=== PATIENT | female | born 1940 | race Caucasian/White ===

== ENCOUNTER 2016-12-23 17:54 | Emergency (ER) | payer MEDICARE ==
[~2016-12-23] VITALS: Ht 162.6 cm; Wt 97.0 kg
[~2016-12-23 17:54] MED LIST: ALPR-475 PO; CALC600T4 PO; CHOL20003 PO; CLON0.1T PO; DABI150C PO; HYDR25TA6 PO; METO25TA91 PO; VALS320T2 PO; ZOLP10TA PO
[2016-12-23] MEDS ORDERED: ALBUTEROL/IPRATROPIUM 2.5MG/0.5MG, 3 ML NPPB SCH (18:00)
[2016-12-23] MEDS ORDERED: SODIUM CHLORIDE FLUSH 10ML SYR IVF ONE (18:00)
[2016-12-23] MEDS ORDERED: ALBUTEROL/IPRATROPIUM 2.5MG/0.5MG, 3 ML ONE (18:03)
[2016-12-23 18:42] LABS: HEMOGLOBIN 13.7 g/dL (11.7-16.4)
[2016-12-23 19:00] LABS: BLOOD UREA NITROGEN 12 mg/dL (7-18)
[2016-12-23] MEDS ORDERED: CLON-275 PO (19:03)
[2016-12-23] MEDS ORDERED: LOSA100T6 PO (19:03)
[2016-12-23] MEDS ORDERED: LEVO50TA5 PO (19:03)
[2016-12-23] MEDS ORDERED: METO50TA82 PO (19:03)
[2016-12-23] MEDS ORDERED: RIVA20TA PO (19:03)
[2016-12-23] MEDS ORDERED: TRAM50TA2 PO (19:03)
[2016-12-23] MEDS ORDERED: METO-99 PO (19:03)
[2016-12-23] MEDS ORDERED: ALPR0.254 PO (19:03)
[2016-12-23 19:11] LABS: IS PT STATUS REG ER OR PRE ER? YES
[2016-12-23 21:58] VITALS: BP 136/85
== END 2016-12-23 22:00 | disposition home or self-care (01) ==
LOC: ED 20:36
DX: I11.0 Hypertensive heart disease with heart failure (principal); I50.1 Left ventricular failure, unspecified; E03.9 Hypothyroidism, unspecified; Z90.710 Acquired absence of both cervix and uterus; Z88.8 Allergy status to other drugs, medicaments and biological substances
CPT/HCPCS: 36415; 71010; 80048; 82040; 83605; 83880; 84145; 84484; 85025; 85610; 87040; 93005; 94640; 99285; J7512; J7620

== ENCOUNTER 2016-12-24 15:20 | Inpatient (IN) | payer MEDICARE ==
[~2016-12-24] VITALS: Ht 162.6 cm; Wt 87.6 kg
[~2016-12-24 15:20] MED LIST changes: +ALPR0.254 PO; +CLON-275 PO; +LEVO50TA5 PO; +LOSA100T6 PO; +METO-99 PO; +METO50TA82 PO; +RIVA20TA PO; +TRAM50TA2 PO
[2016-12-24] MEDS ORDERED: methylPREDNISolone SOD SUCC 125 MG/2 ML IVP ONE (15:30)
[2016-12-24] MEDS ORDERED: ALBUTEROL/IPRATROPIUM 2.5MG/0.5MG, 3 ML NPPB ONE (15:30)
[2016-12-24] MEDS ORDERED: SODIUM CHLORIDE FLUSH 10ML SYR IVF ONE (15:30)
[2016-12-24] MEDS ORDERED: ALBUTEROL/IPRATROPIUM 2.5MG/0.5MG, 3 ML ONE (15:35)
[2016-12-24] MEDS ORDERED: methylPREDNISolone SOD SUCC 125 MG/2 ML ONE (15:49)
[2016-12-24] MEDS ORDERED: ENALAPRILAT 1.25 MG/ML, 2ML IV ONE (16:00)
[2016-12-24 16:06] LABS: ASPARTATE AMINO TRANSFERASE 34 U/L (15-37); BLOOD UREA NITROGEN 15 mg/dL (7-18); HEMOGLOBIN 13.1 g/dL (11.7-16.4)
[2016-12-24] MEDS ORDERED: ENALAPRILAT 1.25 MG/ML, 2ML ONE (16:16)
[2016-12-24 16:56] LABS: IS PT STATUS REG ER OR PRE ER? YES
[2016-12-24] MEDS ORDERED: POTASSIUM CHLORIDE 20 MEQ TAB.ER.PRT PO ONE (17:00)
[2016-12-24] MEDS ORDERED: POTASSIUM CHLORIDE 20 MEQ TAB.ER.PRT ONE (17:07)
[2016-12-24] MEDS: DOXYCYCLINE 100 MG in DEXTROSE 5% 250 ML IV SCH (17:26)
[2016-12-24] MEDS ORDERED: LABETALOL 5MG/ML, 20ML IV PRN (17:30)
[2016-12-24] MEDS ORDERED: ONDANSETRON ODT 4 MG PO PRN (17:30)
[2016-12-24] MEDS ORDERED: ONDANSETRON 2MG/ML, 2ML IVP PRN (17:30)
[2016-12-24] MEDS ORDERED: POLYETHYLENE GLYCOL 17 GM PACKET PO PRN (17:30)
[2016-12-24] MEDS: FUROSEMIDE 40 MG/4 ML IV ONE ×2 (18:00→21:13)
[2016-12-24 18:22] LABS: IS PT STATUS REG ER OR PRE ER? YES
[2016-12-24 19:13] VITALS: BP 144/71
[2016-12-24] MEDS ORDERED: DOXYCYCLINE 100MG TABLET PO SCH (21:00)
[2016-12-24] MEDS: FAMOTIDINE 20 MG/2 ML IV SCH ×2 (21:00→21:08)
[2016-12-24] MEDS: ZOLPIDEM 10MG TABLET PO SCH (21:00)
[2016-12-24] MEDS: POTASSIUM CHLORIDE 20 MEQ PACKET PO SCH (21:07)
[2016-12-24] MEDS: ENOXAPARIN 40 MG/0.4 ML SQ SCH ×2 (21:08→21:20)
[2016-12-24] MEDS: CEFTRIAXONE PMX 2GM/50ML 50 ML IV SCH (22:41)
[2016-12-25 00:27] LABS: IS PT STATUS REG ER OR PRE ER? NO
[2016-12-25] MEDS ORDERED: IBUPROFEN 200 MG TABLET PO ONE (00:30)
[2016-12-25 01:35] VITALS: BP 143/80
[2016-12-25] MEDS: DOXYCYCLINE 100 MG in DEXTROSE 5% 250 ML IV SCH ×2 (05:23→16:54)
[2016-12-25 05:45] LABS: HEMOGLOBIN 13.4 g/dL (11.7-16.4)
[2016-12-25 05:47] LABS: BLOOD UREA NITROGEN 15 mg/dL (7-18)
[2016-12-25 05:52] LABS: ASPARTATE AMINO TRANSFERASE 29 U/L (15-37)
[2016-12-25 06:42] VITALS: BP 149/91
[2016-12-25] MEDS ORDERED: LORazepam 1MG TABLET PO ONE (08:30)
[2016-12-25] MEDS ORDERED: REGADENOSON 0.4 MG/5 ML SYRINGE ONE (08:46)
[2016-12-25] MEDS ORDERED: METOPROLOL TARTRATE 100 MG TABLET PO SCH (09:00)
[2016-12-25] MEDS ORDERED: HYDROCHLOROTHIAZIDE 25 MG TABLET PO SCH (09:00)
[2016-12-25 09:45] LABS: IS PT STATUS REG ER OR PRE ER? NO
[2016-12-25] MEDS: POTASSIUM CHLORIDE 20 MEQ PACKET PO SCH (11:52)
[2016-12-25] MEDS: LEVOTHYROXINE 50 MCG TABLET PO SCH (11:53)
[2016-12-25] MEDS: CALCIUM CARBONATE 500 MG TAB.CHEW PO SCH (11:53)
[2016-12-25] MEDS: LOSARTAN 50MG TABLET PO SCH (11:54)
[2016-12-25] MEDS: SENNA/DOCUSATE TABLET PO SCH (11:54)
[2016-12-25] MEDS: CHOLECALCIFEROL 1,000 UNIT TABLET PO SCH (11:54)
[2016-12-25] MEDS: FAMOTIDINE 20 MG/2 ML IV SCH (11:57)
[2016-12-25 12:50] VITALS: BP 155/83
[2016-12-25] MEDS ORDERED: METOPROLOL TARTRATE 50 MG TABLET PO SCH (16:30)
[2016-12-25] MEDS: RIVAROXABAN 20 MG TABLET PO SCH (16:52)
[2016-12-25 19:28] VITALS: BP 161/72
[2016-12-25] MEDS: FAMOTIDINE 20 MG TABLET PO SCH (20:13)
[2016-12-25] MEDS: METOPROLOL TARTRATE 50 MG TABLET PO SCH (20:14)
[2016-12-25] MEDS: ZOLPIDEM 10MG TABLET PO SCH (20:14)
[2016-12-25] MEDS: CEFTRIAXONE PMX 2GM/50ML 50 ML IV SCH (22:36)
[2016-12-26] MEDS: GUAIFENESIN/DM 200-20MG, 10ML UDC PO PRN (01:25)
[2016-12-26 02:00] VITALS: BP 144/82
[2016-12-26] MEDS: DOXYCYCLINE 100 MG in DEXTROSE 5% 250 ML IV SCH ×2 (04:52→17:41)
[2016-12-26 05:55] LABS: HEMOGLOBIN 13.7 g/dL (11.7-16.4)
[2016-12-26 06:05] LABS: ASPARTATE AMINO TRANSFERASE 25 U/L (15-37); BLOOD UREA NITROGEN 19 mg/dL (7-18)
[2016-12-26 07:20] VITALS: BP 138/84
[2016-12-26] MEDS: CHOLECALCIFEROL 1,000 UNIT TABLET PO SCH (09:12)
[2016-12-26] MEDS: POTASSIUM CHLORIDE 20 MEQ PACKET PO SCH (09:12)
[2016-12-26] MEDS: CALCIUM CARBONATE 500 MG TAB.CHEW PO SCH (09:12)
[2016-12-26] MEDS: LEVOTHYROXINE 50 MCG TABLET PO SCH (09:13)
[2016-12-26] MEDS: FAMOTIDINE 20 MG TABLET PO SCH ×2 (09:13→19:45)
[2016-12-26] MEDS: METOPROLOL TARTRATE 50 MG TABLET PO SCH ×2 (09:13→19:45)
[2016-12-26] MEDS: LOSARTAN 50MG TABLET PO SCH (09:13)
[2016-12-26] MEDS: SENNA/DOCUSATE TABLET PO SCH (09:14)
[2016-12-26 13:17] VITALS: BP 160/93
[2016-12-26] MEDS: RIVAROXABAN 20 MG TABLET PO SCH (17:41)
[2016-12-26 19:52] VITALS: BP 178/95
[2016-12-26 20:44] VITALS: BP 176/116
[2016-12-26] MEDS: ZOLPIDEM 10MG TABLET PO SCH (21:00)
[2016-12-26] MEDS ORDERED: LABETALOL 20 MG/4 ML IV PRN (21:30)
[2016-12-26] MEDS: CEFTRIAXONE PMX 2GM/50ML 50 ML IV SCH (22:42)
[2016-12-26 22:50] VITALS: BP 144/83
[2016-12-27 03:50] VITALS: BP 163/87
[2016-12-27] MEDS: DOXYCYCLINE 100 MG in DEXTROSE 5% 250 ML IV SCH (05:19)
[2016-12-27 05:20] LABS: HEMOGLOBIN 12.4 g/dL (11.7-16.4)
[2016-12-27 05:31] LABS: BLOOD UREA NITROGEN 17 mg/dL (7-18)
[2016-12-27 06:40] VITALS: BP 171/82
[2016-12-27] MEDS: CALCIUM CARBONATE 500 MG TAB.CHEW PO SCH (08:45)
[2016-12-27] MEDS: SENNA/DOCUSATE TABLET PO SCH (08:45)
[2016-12-27] MEDS: CHOLECALCIFEROL 1,000 UNIT TABLET PO SCH (08:45)
[2016-12-27] MEDS: FAMOTIDINE 20 MG TABLET PO SCH (08:45)
[2016-12-27] MEDS: METOPROLOL TARTRATE 50 MG TABLET PO SCH (08:45)
[2016-12-27] MEDS: LEVOTHYROXINE 50 MCG TABLET PO SCH (08:45)
[2016-12-27] MEDS: LOSARTAN 50MG TABLET PO SCH (08:46)
[2016-12-27] MEDS: GUAIFENESIN/DM 200-20MG, 10ML UDC PO PRN (08:55)
[2016-12-27 12:49] VITALS: BP 162/96
[2016-12-27] MEDS ORDERED: PRED20TA PO (13:52)
[2016-12-27] MEDS ORDERED: DOXY100T PO (13:52)
[2016-12-27] MEDS ORDERED: CEFD300C2 PO (13:52)
[2016-12-27] MEDS ORDERED: ALBU8.5H3 INH (13:53)
[2016-12-27] MEDS ORDERED: GUAI5SYR PO (14:01)
== END 2016-12-27 16:50 | disposition home health service (06) | DRG 291 ==
LOC: ED 15:29 → EDIP 16:35 → 4EST 18:28 → DCLOUNGE 12-27 16:50
PROVIDERS: ADMIT Internal Medicine; ATTEND Internal Medicine
DX: I11.0 Hypertensive heart disease with heart failure (principal); J18.9 Pneumonia, unspecified organism; J96.01 Acute respiratory failure with hypoxia; D68.69 Other thrombophilia; E87.1 Hypo-osmolality and hyponatremia; I50.41 Acute combined systolic (congestive) and diastolic (congestive) heart failure; J40 Bronchitis, not specified as acute or chronic; I48.91 Unspecified atrial fibrillation; E03.9 Hypothyroidism, unspecified; E87.6 Hypokalemia; R73.9 Hyperglycemia, unspecified; M19.90 Unspecified osteoarthritis, unspecified site; I27.2 Other secondary pulmonary hypertension; T50.2X5A Adverse effect of carbonic-anhydrase inhibitors, benzothiadiazides and other diuretics, initial encounter; Z79.899 Other long term (current) drug therapy; Z80.42 Family history of malignant neoplasm of prostate; Z90.49 Acquired absence of other specified parts of digestive tract; Z90.89 Acquired absence of other organs; Z86.73 Personal history of transient ischemic attack (TIA), and cerebral infarction without residual deficits; Z90.710 Acquired absence of both cervix and uterus; Z88.8 Allergy status to other drugs, medicaments and biological substances
CPT/HCPCS: 36415; 71010; 78452; 80048; 80053; 80061; 81003; 82962; 83036; 83605; 83690; 83735; 83880; 84100; 84439; 84443; 84484; 85025; 85610; 87040; 87070; 87205; 93005; 93017; 93306; 94640; 96365; 96375; J0696; J1650; J1940; J2785; J7060; J7620; A9502; C9898; J2930; J7512; S0028

== ENCOUNTER → 2017-06-11 | Outpatient (CLI) | payer MEDICARE ==
[~2017-06-11] MED LIST changes: +ALBU8.5H8 INH; +CEFD300C37 PO; +CHOL2000 PO; -CHOL20003 PO; +DOXY100T PO; +GUAI5SYR PO; +PRED20TA PO
[2017-06-11 12:47] LABS: HEMATOCRIT 35.1 % (34.6-47.8); HEMOGLOBIN 11.5 g/dL (11.7-16.4); WHITE BLOOD COUNT 7.3 x10^3/uL (3.4-10)
[2017-06-11 13:02] LABS: HEP B SURF. AB < 3.1 mIU/mL (0.0-10.0)
[2017-06-11 13:26] LABS: TOTAL IRON BINDING CAPACITY 458 mcg/dL (250-450)
[2017-06-11 13:41] LABS: HEPATITIS A ANTIBODY TOTAL Nonreactive (Nonreactive)
[2017-06-13 12:28] LABS: ANA SCREEN POSITIVE (Negative)
[2017-06-13 14:07] LABS: A/G RATIO 1.5 (0.7-1.7); ALBUMIN 4.2 g/dL (2.9-4.4); ALPHA-1-GLOBULIN 0.2 g/dL (0.0-0.4); BETA GLOBULIN 1.3 g/dL (0.7-1.3); GAMMA GLOBULIN 0.7 g/dL (0.4-1.8)
== END | disposition home or self-care (01) ==
LOC: CFH 10:25
PROVIDERS: ATTEND Internal Medicine
DX: D64.9 Anemia, unspecified (principal); D72.829 Elevated white blood cell count, unspecified; F32.9 Major depressive disorder, single episode, unspecified; F41.9 Anxiety disorder, unspecified; G89.29 Other chronic pain
CPT/HCPCS: 36415; 82607; 82746; 83540; 83550; 84155; 84165; 85027; 85045; 86038; 86039; 86706; 86708; 86803

== ENCOUNTER 2017-10-29 15:44 | Inpatient (IN) | payer MEDICARE ==
[~2017-10-29] VITALS: Ht 162.6 cm; Wt 80.9 kg
[~2017-10-29 15:44] MED LIST changes: -CARV6.252 PO; -CHOL100012 PO; -FERR324T8 PO; -FURO20TA3 PO; -OMEG-14 PO; -OMEG1CAP57 PO; -POTA20TA14 PO; -SERT50TA5 PO; -TRAZ50TA18 PO
[2017-10-29] MEDS ORDERED: SODIUM CHLORIDE 0.9% 1,000ML IVBOLUS ONE ×2 (16:30→17:00)
[2017-10-29] MEDS ORDERED: SODIUM CHLORIDE FLUSH 10ML SYR IVF ONE (16:30)
[2017-10-29 16:34] LABS: ALANINE AMINOTRANSFERASE 18 U/L (12-78); ALBUMIN 2.9 g/dL (3.4-5.0); ANION GAP 8 mmol/L (5-15); CALCIUM 9.2 mg/dL (8.5-10.1); CHLORIDE 98 mmol/L (98-107); CREATININE 0.91 mg/dL (0.55-1.02)
[2017-10-29 16:36] LABS: ALKALINE PHOSPHATASE 100 U/L (45-117); BILIRUBIN,TOTAL 0.6 mg/dL (0.2-1.0); TOTAL PROTEIN 7.3 g/dL (6.4-8.2)
[2017-10-29 16:45] LABS: MD YES; MEAN CORPUSCULAR HEMOGLOBIN 27.2 pg (27.0-34.8); MEAN CORPUSCULAR HGB CONC 31.8 g/dL (32.4-35.8); MEAN CORPUSCULAR VOLUME 85.6 fL (80-100); MEAN PLATELET VOLUME 9.3 fL (7.4-10.4); PLATELET COUNT 451 x10^3/uL (130-400); RED CELL DISTRIBUTION WIDTH 15.5 % (9.6-15.2)
[2017-10-29] MEDS ORDERED: ONDANSETRON 2MG/ML, 2ML IVPush ONE (17:00)
[2017-10-29] MEDS ORDERED: SODIUM CHLORIDE 0.9% 1,000 ML IV SCH (17:00)
[2017-10-29] MEDS ORDERED: PIPERACILLIN/TAZO/PMX 4.5GM 100 ML IV ONE (17:00)
[2017-10-29] MEDS ORDERED: MORPHINE SULFATE 4 MG/ML, 1ML ONE (17:10)
[2017-10-29] MEDS ORDERED: ONDANSETRON 2MG/ML, 2ML ONE (17:10)
[2017-10-29] MEDS: MORPHINE SULFATE 4 MG/ML, 1ML IVPush PRN ×2 (17:18→21:57)
[2017-10-29 17:28] LABS: BAND#(MANUAL) 0.21 x10^3/uL; BANDS%(MANUAL) 2 % (0-7); LYMPH#(MANUAL) 1.56 x10^3/uL (1-3.4); LYMPHS% (MANUAL) 15 % (22-44); MONOS#(MANUAL) 0.42 x10^3/uL (0.3-2.7); MONOS% (MANUAL) 4 % (2-9); MYELOCYTES# (MANUAL) 0.21 x10^3/uL (0-0); MYELOCYTES% (MANUAL) 2 % (0-0); SEG#(MANUAL) 8.01 x10^3/uL (1.8-6.8); SEGS% (MANUAL) 77 % (42-75)
[2017-10-29 17:31] LABS: <PLATELET ESTIMATE> INCREASED; <PLT MORPHOLOGY> NORMAL PLT MORPH; ANISOCYTOSIS 1+
[2017-10-29 17:52] LABS: MICROSCOPIC NOT IND
[2017-10-29 17:53] LABS: CULTURE INDICATED? NO
[2017-10-29] MEDS ORDERED: POTA20TA14 PO (17:56)
[2017-10-29] MEDS ORDERED: OMEG-14 PO (17:56)
[2017-10-29] MEDS ORDERED: OMEG1CAP57 PO (17:56)
[2017-10-29] MEDS ORDERED: CHOL100012 PO (17:56)
[2017-10-29] MEDS ORDERED: TRAZ50TA18 PO (17:56)
[2017-10-29] MEDS ORDERED: CARV6.252 PO (17:56)
[2017-10-29] MEDS ORDERED: RIVA20TA PO (17:56)
[2017-10-29] MEDS ORDERED: FURO20TA3 PO (17:56)
[2017-10-29] MEDS ORDERED: LOSA100T6 PO (17:56)
[2017-10-29] MEDS ORDERED: CLON0.1T PO (17:56)
[2017-10-29] MEDS ORDERED: SERT50TA5 PO (17:57)
[2017-10-29] MEDS ORDERED: FERR324T8 PO (17:57)
[2017-10-29] MEDS ORDERED: ONDANSETRON 2MG/ML, 2ML IVPush PRN (18:30)
[2017-10-29] MEDS: PIPERACILLIN/TAZO/PMX 3.375GM 50 ML IV SCH ×2 (18:56→23:50)
[2017-10-29] MEDS ORDERED: HEPARIN 5,000 UNITS/ML, 1ML ONE (20:44)
[2017-10-29] MEDS ORDERED: HEPARIN 25,000 UNITS/500ML PMX 500 ML ONE (20:45)
[2017-10-29] MEDS ORDERED: morphine SULFATE 10 MG/ML, 1ML ONE ×3 (21:31→21:48)
[2017-10-29] MEDS: morphine SULFATE 10 MG/ML, 1ML IVPush PRN (21:37)
[2017-10-29 22:00] VITALS: BP 149/87
[2017-10-29] MEDS ORDERED: HEPARIN 5,000 UNITS/ML, 1ML IV ONE (23:00)
[2017-10-29] MEDS: D5%-0.45NACL+KCL 20MEQ 1,000 ML IV SCH (23:41)
[2017-10-29] MEDS: CARVEDILOL 6.25 MG TABLET PO SCH (23:42)
[2017-10-29] MEDS: FAMOTIDINE 20 MG/2 ML IVPush SCH (23:42)
[2017-10-29] MEDS: TRAZODONE 50MG TABLET PO SCH (23:42)
[2017-10-30 01:39] VITALS: BP 113/72
[2017-10-30 03:49] LABS: BASOPHILS # (AUTO) 0.06 x10^3/uL (0-0.1); BASOPHILS % (AUTO) 1 % (0-1); EOSINOPHILS # (AUTO) 0.09 x10^3/uL (0-0.4); EOSINOPHILS % (AUTO) 1 % (1-7); LYMPHOCYTES # (AUTO) 1.73 x10^3/uL (1-3.4); LYMPHOCYTES % (AUTO) 24 % (22-44); MD NO; MEAN CORPUSCULAR HEMOGLOBIN 27.8 pg (27.0-34.8); MEAN CORPUSCULAR HGB CONC 32.9 g/dL (32.4-35.8); MEAN CORPUSCULAR VOLUME 84.6 fL (80-100); MONOCYTES # (AUTO) 0.73 x10^3/uL (0.2-0.8); MONOCYTES % (AUTO) 10 % (2-9); NEUTROPHILS # (AUTO) 4.63 x10^3/uL (1.8-6.8); NEUTROPHILS % (AUTO) 64 % (42-75); PLATELET COUNT 338 x10^3/uL (130-400); RED BLOOD COUNT 3.28 x10^6/uL (3.82-5.3); RED CELL DISTRIBUTION WIDTH 15.1 % (9.6-15.2)
[2017-10-30 04:02] LABS: ALANINE AMINOTRANSFERASE 13 U/L (12-78); ALBUMIN 2.3 g/dL (3.4-5.0); ANION GAP 8 mmol/L (5-15); CHLORIDE 106 mmol/L (98-107)
[2017-10-30 04:04] LABS: ALKALINE PHOSPHATASE 71 U/L (45-117); BILIRUBIN,TOTAL 0.5 mg/dL (0.2-1.0); TOTAL PROTEIN 5.9 g/dL (6.4-8.2)
[2017-10-30] MEDS: HEPARIN 5,000 UNITS/ML, 1ML IV PRN (04:19)
[2017-10-30] MEDS: LEVOTHYROXINE 50 MCG TABLET PO SCH (06:56)
[2017-10-30] MEDS: CARVEDILOL 6.25 MG TABLET PO SCH ×2 (06:56→17:41)
[2017-10-30] MEDS: PIPERACILLIN/TAZO/PMX 3.375GM 50 ML IV SCH ×3 (06:56→17:42)
[2017-10-30 07:18] VITALS: BP 126/78
[2017-10-30] MEDS: LOSARTAN 50MG TABLET PO SCH (08:58)
[2017-10-30] MEDS: FAMOTIDINE 20 MG/2 ML IVPush SCH ×2 (08:58→22:40)
[2017-10-30] MEDS: FUROSEMIDE 20 MG TABLET PO SCH (08:58)
[2017-10-30 13:08] VITALS: BP 151/84
[2017-10-30] MEDS: D5%-0.45NACL+KCL 20MEQ 1,000 ML IV SCH ×2 (13:26→22:39)
[2017-10-30] MEDS ORDERED: LIDOCAINE 1%, 20ML ONE (13:30)
[2017-10-30] MEDS ORDERED: FENTANYL PF 100 MCG/2ML ONE (13:38)
[2017-10-30] MEDS ORDERED: NALOXONE 1 MG/ML, 2ML ONE (13:39)
[2017-10-30] MEDS ORDERED: MIDAZOLAM 1 MG/ML, 2ML ONE ×2 (13:39)
[2017-10-30] MEDS ORDERED: FLUMAZENIL 0.1 MG/1 ML, 5ML ONE (13:39)
[2017-10-30] MEDS: morphine SULFATE 10 MG/ML, 1ML IVPush PRN ×2 (16:01→18:09)
[2017-10-30 20:04] VITALS: BP 130/69
[2017-10-30] MEDS ORDERED: TRAZODONE 50MG TABLET PO SCH (21:00)
[2017-10-30] MEDS ORDERED: HEPARIN 5,000 UNITS/ML, 1ML IV ONE (21:30)
[2017-10-30] MEDS: TRAZODONE 50MG TABLET PO SCH (22:40)
[2017-10-31 00:26] VITALS: BP 128/78
[2017-10-31] MEDS: PIPERACILLIN/TAZO/PMX 3.375GM 50 ML IV SCH ×4 (00:27→20:23)
[2017-10-31] MEDS: HEPARIN 5,000 UNITS/ML, 1ML IV PRN ×2 (05:12→19:07)
[2017-10-31] MEDS ORDERED: LEVOTHYROXINE 25 MCG TABLET ONE ×2 (06:12→06:13)
[2017-10-31] MEDS: LEVOTHYROXINE 50 MCG TABLET PO SCH (06:15)
[2017-10-31] MEDS: CARVEDILOL 6.25 MG TABLET PO SCH ×2 (06:18→17:52)
[2017-10-31 06:27] VITALS: BP 104/63
[2017-10-31] MEDS: LOSARTAN 50MG TABLET PO SCH (09:13)
[2017-10-31] MEDS: FUROSEMIDE 20 MG TABLET PO SCH (09:13)
[2017-10-31] MEDS: FAMOTIDINE 20 MG/2 ML IVPush SCH ×2 (09:13→20:24)
[2017-10-31 12:22] VITALS: BP 142/90
[2017-10-31] MEDS: D5%-0.45NACL+KCL 20MEQ 1,000 ML IV SCH (17:52)
[2017-10-31 19:18] VITALS: BP 132/88
[2017-10-31] MEDS: TRAZODONE 50MG TABLET PO SCH (20:24)
[2017-11-01 01:53] VITALS: BP 140/83
[2017-11-01] MEDS: PIPERACILLIN/TAZO/PMX 3.375GM 50 ML IV SCH ×4 (01:55→20:15)
[2017-11-01] MEDS: LEVOTHYROXINE 50 MCG TABLET PO SCH (06:31)
[2017-11-01] MEDS: CARVEDILOL 6.25 MG TABLET PO SCH ×2 (06:31→17:38)
[2017-11-01 07:33] VITALS: BP 134/84
[2017-11-01] MEDS: FUROSEMIDE 20 MG TABLET PO SCH (08:27)
[2017-11-01] MEDS: LOSARTAN 50MG TABLET PO SCH (08:27)
[2017-11-01] MEDS: FAMOTIDINE 20 MG/2 ML IVPush SCH ×2 (08:27→20:15)
[2017-11-01] MEDS: D5%-0.45NACL+KCL 20MEQ 1,000 ML IV SCH (11:07)
[2017-11-01 13:07] VITALS: BP 141/82
[2017-11-01 17:37] VITALS: BP 146/81
[2017-11-01 19:08] VITALS: BP 147/92
[2017-11-01] MEDS: TRAZODONE 50MG TABLET PO SCH (20:15)
[2017-11-02] MEDS: D5%-0.45NACL+KCL 20MEQ 1,000 ML IV SCH ×2 (02:04→16:25)
[2017-11-02] MEDS: PIPERACILLIN/TAZO/PMX 3.375GM 50 ML IV SCH ×4 (02:05→19:32)
[2017-11-02 02:51] VITALS: BP 131/84
[2017-11-02] MEDS: CARVEDILOL 6.25 MG TABLET PO SCH ×2 (05:14→17:45)
[2017-11-02] MEDS: LEVOTHYROXINE 50 MCG TABLET PO SCH (05:14)
[2017-11-02] MEDS: HEPARIN 25,000 UNITS/500ML PMX 500 ML IV PRN (05:45)
[2017-11-02 06:55] VITALS: BP 130/77
[2017-11-02] MEDS: FAMOTIDINE 20 MG/2 ML IVPush SCH ×2 (08:14→20:38)
[2017-11-02] MEDS: LOSARTAN 50MG TABLET PO SCH (08:21)
[2017-11-02] MEDS: FUROSEMIDE 20 MG TABLET PO SCH (08:21)
[2017-11-02 12:45] VITALS: BP 140/84
[2017-11-02 13:13] LABS: BASOPHILS # (AUTO) 0.04 x10^3/uL (0-0.1); BASOPHILS % (AUTO) 1 % (0-1); EOSINOPHILS % (AUTO) 1 % (1-7); LYMPHOCYTES # (AUTO) 1.08 x10^3/uL (1-3.4); LYMPHOCYTES % (AUTO) 13 % (22-44); MD NO; MEAN CORPUSCULAR HEMOGLOBIN 27.8 pg (27.0-34.8); MEAN CORPUSCULAR HGB CONC 32.6 g/dL (32.4-35.8); MEAN CORPUSCULAR VOLUME 85.2 fL (80-100); MEAN PLATELET VOLUME 9.1 fL (7.4-10.4); MONOCYTES # (AUTO) 0.61 x10^3/uL (0.2-0.8); MONOCYTES % (AUTO) 7 % (2-9); NEUTROPHILS # (AUTO) 6.68 x10^3/uL (1.8-6.8); NEUTROPHILS % (AUTO) 79 % (42-75); PLATELET COUNT 346 x10^3/uL (130-400); RED BLOOD COUNT 3.52 x10^6/uL (3.82-5.3); RED CELL DISTRIBUTION WIDTH 16.2 % (9.6-15.2)
[2017-11-02 17:44] VITALS: BP 146/89
[2017-11-02 19:43] VITALS: BP 143/91
[2017-11-02] MEDS: TRAZODONE 50MG TABLET PO SCH (20:38)
[2017-11-03 01:27] VITALS: BP 143/80
[2017-11-03] MEDS: PIPERACILLIN/TAZO/PMX 3.375GM 50 ML IV SCH ×4 (01:29→19:38)
[2017-11-03] MEDS: D5%-0.45NACL+KCL 20MEQ 1,000 ML IV SCH ×2 (05:26→18:24)
[2017-11-03] MEDS: CARVEDILOL 6.25 MG TABLET PO SCH ×2 (05:27→17:13)
[2017-11-03] MEDS: LEVOTHYROXINE 50 MCG TABLET PO SCH (05:27)
[2017-11-03 07:54] VITALS: BP 147/84
[2017-11-03] MEDS: FAMOTIDINE 20 MG/2 ML IVPush SCH ×2 (07:59→20:35)
[2017-11-03] MEDS: FUROSEMIDE 20 MG TABLET PO SCH (08:06)
[2017-11-03] MEDS: LOSARTAN 50MG TABLET PO SCH (08:06)
[2017-11-03] MEDS: HEPARIN 25,000 UNITS/500ML PMX 500 ML IV PRN (09:12)
[2017-11-03] MEDS ORDERED: OMNIPAQUE 350 MG/ML, 100ML BOTTLE ONE (13:02)
[2017-11-03 15:01] VITALS: BP 145/88
[2017-11-03 20:35] VITALS: BP 142/71
[2017-11-03] MEDS: TRAZODONE 50MG TABLET PO SCH (20:35)
[2017-11-03 23:20] VITALS: BP_SYST 142
[2017-11-04] MEDS: PIPERACILLIN/TAZO/PMX 3.375GM 50 ML IV SCH ×4 (01:39→19:38)
[2017-11-04 02:37] VITALS: BP 127/72
[2017-11-04] MEDS: CARVEDILOL 6.25 MG TABLET PO SCH ×2 (06:18→17:27)
[2017-11-04] MEDS: LEVOTHYROXINE 50 MCG TABLET PO SCH (06:21)
[2017-11-04] MEDS: HEPARIN 5,000 UNITS/ML, 1ML IV PRN (07:36)
[2017-11-04 08:02] VITALS: BP 141/83
[2017-11-04] MEDS: FUROSEMIDE 20 MG TABLET PO SCH (08:32)
[2017-11-04] MEDS: LOSARTAN 50MG TABLET PO SCH (08:32)
[2017-11-04] MEDS: FAMOTIDINE 20 MG/2 ML IVPush SCH ×2 (08:32→20:53)
[2017-11-04] MEDS: HEPARIN 25,000 UNITS/500ML PMX 500 ML IV PRN (08:39)
[2017-11-04] MEDS: D5%-0.45NACL+KCL 20MEQ 1,000 ML IV SCH (11:17)
[2017-11-04 15:42] VITALS: BP 132/84
[2017-11-04] MEDS ORDERED: RIVAROXABAN 20 MG TABLET PO SCH (17:00)
[2017-11-04 19:25] VITALS: BP 122/72
[2017-11-04] MEDS: TRAZODONE 50MG TABLET PO SCH (20:52)
[2017-11-05] MEDS: D5%-0.45NACL+KCL 20MEQ 1,000 ML IV SCH (01:52)
[2017-11-05] MEDS: PIPERACILLIN/TAZO/PMX 3.375GM 50 ML IV SCH ×2 (01:52→07:28)
[2017-11-05 02:10] VITALS: BP 126/79
[2017-11-05 05:05] LABS: BASOPHILS # (AUTO) 0.05 x10^3/uL (0-0.1); BASOPHILS % (AUTO) 1 % (0-1); EOSINOPHILS # (AUTO) 0.16 x10^3/uL (0-0.4); EOSINOPHILS % (AUTO) 2 % (1-7); LYMPHOCYTES # (AUTO) 1.21 x10^3/uL (1-3.4); LYMPHOCYTES % (AUTO) 16 % (22-44); MD NO; MEAN CORPUSCULAR HEMOGLOBIN 28.7 pg (27.0-34.8); MEAN CORPUSCULAR HGB CONC 33.4 g/dL (32.4-35.8); MEAN CORPUSCULAR VOLUME 86.1 fL (80-100); MEAN PLATELET VOLUME 9.1 fL (7.4-10.4); MONOCYTES # (AUTO) 0.75 x10^3/uL (0.2-0.8); MONOCYTES % (AUTO) 10 % (2-9); NEUTROPHILS # (AUTO) 5.23 x10^3/uL (1.8-6.8); NEUTROPHILS % (AUTO) 71 % (42-75); PLATELET COUNT 303 x10^3/uL (130-400); RED BLOOD COUNT 3.28 x10^6/uL (3.82-5.3); RED CELL DISTRIBUTION WIDTH 16.5 % (9.6-15.2)
[2017-11-05 05:42] VITALS: BP 119/72
[2017-11-05] MEDS: CARVEDILOL 6.25 MG TABLET PO SCH (05:44)
[2017-11-05] MEDS: LEVOTHYROXINE 50 MCG TABLET PO SCH (05:44)
[2017-11-05] MEDS: FAMOTIDINE 20 MG/2 ML IVPush SCH (07:28)
[2017-11-05 07:56] VITALS: BP 151/84
[2017-11-05] MEDS ORDERED: AMOX1TAB64 PO (08:52)
[2017-11-05] MEDS ORDERED: METR500T PO (08:53)
[2017-11-05] MEDS: FUROSEMIDE 20 MG TABLET PO SCH (09:00)
[2017-11-05] MEDS: LOSARTAN 50MG TABLET PO SCH (09:00)
== END 2017-11-05 11:10 | disposition home or self-care (01) | DRG 391 ==
LOC: ED 17:22 → EDIP 17:23 → ED 17:38 → 4NOR 22:00 → DCLOUNGE 11-05 10:53
PROVIDERS: ADMIT Surgery; ATTEND Surgery
PROC: 0W9J3ZZ Drainage of Pelvic Cavity, Percutaneous Approach (ICD-10-PCS; principal; 2017-10-30)
DX: K57.20 Diverticulitis of large intestine with perforation and abscess without bleeding (principal); E43 Unspecified severe protein-calorie malnutrition; E88.09 Other disorders of plasma-protein metabolism, not elsewhere classified; I48.91 Unspecified atrial fibrillation; I50.9 Heart failure, unspecified; I11.0 Hypertensive heart disease with heart failure; E03.9 Hypothyroidism, unspecified; Z79.01 Long term (current) use of anticoagulants; Z90.710 Acquired absence of both cervix and uterus; Z68.30 Body mass index [BMI] 30.0-30.9, adult; Z88.1 Allergy status to other antibiotic agents; Z88.5 Allergy status to narcotic agent; Z88.8 Allergy status to other drugs, medicaments and biological substances; Z93.3 Colostomy status; Z90.49 Acquired absence of other specified parts of digestive tract
CPT/HCPCS: 36415; 49406; 71045; 74177; 75989; 80053; 81003; 83690; 85025; 85520; 85730; 87070; 87075; 87076; 87077; 87186; 87205; 93005; 96365; 96366; 96375; 96376; 99156; 99157; C1894; J1644; J2250; J2405; J2543; J3010; J3490; Q9967; C1729; C1769; J2270; J2310; J3480; J7030; S0028

== ENCOUNTER → 2017-10-29 | Outpatient (CLI) | payer MEDICARE ==
[~2017-10-29] MED LIST changes: +CARV6.252 PO; +CHOL100012 PO; +FERR324T8 PO; +FURO20TA3 PO; +OMEG-14 PO; +OMEG1CAP57 PO; +POTA20TA14 PO; +SERT50TA5 PO; +TRAZ50TA18 PO
== END | disposition home or self-care (01) ==
LOC: RAD 12:15
PROVIDERS: ATTEND Internal Medicine
DX: K57.92 Diverticulitis of intestine, part unspecified, without perforation or abscess without bleeding (principal); K76.0 Fatty (change of) liver, not elsewhere classified; I51.7 Cardiomegaly
CPT/HCPCS: 74177

== ENCOUNTER → 2018-01-08 | Outpatient (CLI) | payer MEDICARE ==
[~2018-01-08] MED LIST changes: +AMOX1TAB64 PO; +CARV6.252 PO; +CHOL100012 PO; +FERR324T8 PO; +FURO20TA3 PO; +METR500T PO; +OMEG-14 PO; +OMEG1CAP57 PO; +POTA20TA14 PO; +SERT50TA5 PO; +TRAZ50TA18 PO
== END ==
LOC: RAD 10:53
PROVIDERS: ATTEND Pain Medicine Pain Medicine
DX: M47.896 Other spondylosis, lumbar region (principal); K59.00 Constipation, unspecified
CPT/HCPCS: 72110

== ENCOUNTER → 2018-02-18 | Outpatient (CLI) | payer MEDICARE | END | disposition home or self-care (01) | LOC: CVU 13:05 | PROVIDERS: ATTEND Internal Medicine Cardiovascular Disease | DX: I08.1 Rheumatic disorders of both mitral and tricuspid valves (principal); I10 Essential (primary) hypertension; I48.91 Unspecified atrial fibrillation | CPT/HCPCS: 93306 ==

== ENCOUNTER → 2018-02-20 | Outpatient (CLI) | payer MEDICARE ==
[2018-02-20 12:54] LABS: CHOL/HDL RATIO 3.4; LDL/HDL RATIO 1.9 (0.5-3.0); T4 (THYROXINE) 11.2 mcg/dL (4.8-13.9); THYROID STIMULATING HORMONE 2.19 mIU/L (0.358-3.740)
== END | disposition home or self-care (01) ==
LOC: CFH 08:11
PROVIDERS: ATTEND Internal Medicine Cardiovascular Disease
DX: E03.9 Hypothyroidism, unspecified (principal); E78.4 Other hyperlipidemia; I48.2 Chronic atrial fibrillation
CPT/HCPCS: 36415; 80061; 84436; 84443; 84481

== ENCOUNTER → 2019-08-06 | Outpatient (CLI) | payer MEDICARE ==
[~2019-08-06] MED LIST changes: -ALPR-475 PO; +ALPR0.5T7 PO; -CLON0.1T PO; +CLON0.1T22 PO; +LOSA100T14 PO; -LOSA100T6 PO; +SERT50TA28 PO; -SERT50TA5 PO; -TRAZ50TA18 PO; +TRAZ50TA66 PO
== END | disposition home or self-care (01) ==
LOC: RAD 10:28
PROVIDERS: ATTEND Surgery
DX: R10.31 Right lower quadrant pain (principal); Z82.49 Family history of ischemic heart disease and other diseases of the circulatory system
CPT/HCPCS: 78226; A9537

== ENCOUNTER → 2019-09-11 | Outpatient (CLI) | payer MEDICARE ==
[~2019-09-11] MED LIST changes: +TRAZ-137 PO
[2019-09-11 12:01] LABS: ALANINE AMINOTRANSFERASE 24 U/L (12-78); ALBUMIN 3.8 g/dL (3.4-5.0); ANION GAP 6 mmol/L (5-15); CALCIUM 9.1 mg/dL (8.5-10.1); CHLORIDE 107 mmol/L (98-107); CREATININE 0.79 mg/dL (0.55-1.02)
[2019-09-11 12:03] LABS: ALKALINE PHOSPHATASE 92 U/L (45-117); BILIRUBIN,TOTAL 0.6 mg/dL (0.2-1.0); TOTAL PROTEIN 7.8 g/dL (6.4-8.2)
== END | disposition home or self-care (01) ==
LOC: STAR 10:29
PROVIDERS: ATTEND Surgery
DX: Z01.812 Encounter for preprocedural laboratory examination (principal); R10.31 Right lower quadrant pain
CPT/HCPCS: 36415; 71046; 80053; 93005

== ENCOUNTER 2019-09-16 07:00 | Day surgery (SDC) | payer MEDICARE ==
[~2019-09-16] VITALS: Ht 165.1 cm; Wt 76.0 kg
[2019-09-16] MEDS ORDERED: LACTATED RINGERS 1,000 ML IV SCH ×2 (07:40→09:55)
[2019-09-16 07:41] VITALS: BP 157/100
[2019-09-16] MEDS ORDERED: LIDOCAINE-MPF 1%, 2ML INFIL ONE (08:00)
[2019-09-16] MEDS ORDERED: EPINEPHRINE 1 MG/ML, 1ML ONE ×2 (08:16→10:01)
[2019-09-16] MEDS ORDERED: BUPIVACAINE/PF 0.5% ONE (08:16)
[2019-09-16] MEDS ORDERED: FENTANYL PF 250 MCG/5ML ONE (08:34)
[2019-09-16] MEDS ORDERED: ONDANSETRON 2MG/ML, 2ML IV PRN (09:00)
[2019-09-16] MEDS ORDERED: hydrALAzine 20 MG/ML, 1ML IV PRN (09:00)
[2019-09-16] MEDS ORDERED: ONDANSETRON ODT 8 MG PO PRN (09:00)
[2019-09-16] MEDS ORDERED: PROMETHAZINE 25 MG SUPP PR PRN (09:00)
[2019-09-16] MEDS ORDERED: PROMETHAZINE 25 MG/ML, 1ML IV PRN (09:00)
[2019-09-16] MEDS ORDERED: HYDROmorphone 2 MG/ML, 1ML IVPush PRN (09:00)
[2019-09-16] MEDS ORDERED: LABETALOL 5MG/ML, 20ML IV PRN (09:00)
[2019-09-16] MEDS ORDERED: HYDROcodone/APAP 7.5-325MG/15ML UDC PO PRN (09:00)
[2019-09-16] MEDS ORDERED: ACETAMINOPHEN 325 MG TABLET PO PRN (09:00)
[2019-09-16] MEDS ORDERED: BUPIVACAINE/PF-EPI 0.5% 1:200K INFIL ONE (09:26)
[2019-09-16] MEDS ORDERED: SUGAMMADEX 200 MG/2 ML IVPush ONE ×2 (09:37)
[2019-09-16] MEDS ORDERED: GLYCOPYRROLATE 0.2MG/1ML, 5ML ONE (09:37)
[2019-09-16] MEDS ORDERED: NEOSTIGMINE 1 MG/ML, 10ML ONE (09:37)
[2019-09-16] MEDS ORDERED: ONDANSETRON 2MG/ML, 2ML ONE (09:37)
[2019-09-16] MEDS ORDERED: ROCURONIUM 10MG/ML,5ML ONE (09:37)
[2019-09-16] MEDS ORDERED: CEFAZOLIN 1,000 MG ONE (09:37)
[2019-09-16] MEDS ORDERED: DEXAMETHASONE 4 MG/ML, 1ML ONE (09:37)
[2019-09-16] MEDS ORDERED: SUCCINYLCHOLINE 20 MG/ML, 10ML ONE (09:37)
[2019-09-16] MEDS ORDERED: PROPOFOL 10 MG/ML, 20ML ONE (09:37)
[2019-09-16] MEDS ORDERED: hydrALAzine 20 MG/ML, 1ML ONE (09:59)
[2019-09-16] MEDS ORDERED: morphine SULFATE 10 MG/ML, 1ML IVPush PRN (10:00)
[2019-09-16] MEDS ORDERED: ONDANSETRON 2MG/ML, 2ML IVPush PRN (10:00)
[2019-09-16] MEDS ORDERED: PROMETHAZINE 25 MG/ML, 1ML IM PRN (10:00)
[2019-09-16] MEDS ORDERED: FENTANYL PF 100 MCG/2ML ONE (10:27)
[2019-09-16] MEDS ORDERED: HYDROcodone/APAP 7.5-325MG/15ML UDC ONE (10:27)
[2019-09-16] MEDS: FENTANYL PF 100 MCG/2ML IV PRN ×2 (10:30→10:40)
[2019-09-16] MEDS ORDERED: ACETAMINOPHEN 325 MG TABLET ONE (10:41)
[2019-09-16] MEDS ORDERED: ACETAMINOPHEN 650 MG/20.3 ML UDC ONE (10:41)
== END 2019-09-16 12:30 | disposition home or self-care (01) ==
LOC: OUT 07:00
PROVIDERS: ATTEND Surgery
DX: K81.1 Chronic cholecystitis (principal); K82.8 Other specified diseases of gallbladder; I48.91 Unspecified atrial fibrillation; I50.9 Heart failure, unspecified; I11.0 Hypertensive heart disease with heart failure; E03.9 Hypothyroidism, unspecified; I27.20 Pulmonary hypertension, unspecified; Z79.01 Long term (current) use of anticoagulants; Z79.890 Hormone replacement therapy; Z79.899 Other long term (current) drug therapy; Z88.5 Allergy status to narcotic agent; Z88.8 Allergy status to other drugs, medicaments and biological substances; Z90.49 Acquired absence of other specified parts of digestive tract; Z90.710 Acquired absence of both cervix and uterus; Z98.890 Other specified postprocedural states
CPT/HCPCS: 47562; 88304; C1729; J0171; J0360; J0690; J1100; J2405; J2704; J3010; J2710; J0330

== ENCOUNTER → 2020-04-06 | Outpatient (CLI) | payer MEDICARE ==
[~2020-04-06] MED LIST changes: +REGADENOSON 0.4 MG/5 ML SYRINGE ONE; -TRAZ-137 PO; +TRAZ-175 PO
== END | disposition home or self-care (01) ==
LOC: CFH 11:22
PROVIDERS: ATTEND Internal Medicine Cardiovascular Disease
DX: I48.91 Unspecified atrial fibrillation (principal); I10 Essential (primary) hypertension; R07.89 Other chest pain
CPT/HCPCS: 78452; 93017; A9502; J2785

== ENCOUNTER 2021-05-25 10:23 | Outpatient (CLI) | payer MEDICARE ==
[~2021-05-25 10:23] MED LIST changes: +ALPR1TAB2 PO; -CALC600T4 PO; +CALC600T60 PO; -REGADENOSON 0.4 MG/5 ML SYRINGE ONE
[2021-05-25 10:45] LABS: BASOPHILS % (AUTO) 1 % (0-1); EOSINOPHILS % (AUTO) 1 % (1-7); LYMPHOCYTES % (AUTO) 14 % (22-44); MEAN CORPUSCULAR HEMOGLOBIN 28.1 pg (27.0-34.8); MEAN CORPUSCULAR HGB CONC 32.4 g/dL (32.4-35.8); MEAN PLATELET VOLUME 8.6 fL (7.4-10.4); MONOCYTES % (AUTO) 7 % (2-9); NEUTROPHILS % (AUTO) 76 % (42-75); PLATELET COUNT 211 x10^3/uL (130-400); RED BLOOD COUNT 4.19 x10^6/uL (3.82-5.3)
[2021-05-25 10:57] LABS: ALBUMIN 3.5 g/dL (3.4-5.0); ANION GAP 4 mmol/L (5-15); CALCIUM 8.9 mg/dL (8.5-10.1); CHLORIDE 108 mmol/L (98-107)
[2021-05-25 11:06] LABS: ALANINE AMINOTRANSFERASE 17 U/L (12-78); ALKALINE PHOSPHATASE 94 U/L (45-117); BILIRUBIN,TOTAL 0.6 mg/dL (0.2-1.0); CHOL/HDL RATIO 2.2; CHOLESTEROL, TOTAL 123 mg/dL (140-239); FREE T4 (FREE THYROXINE) 1.21 ng/dL (0.76-1.46); HDL CHOL % 46 % (28-40); HDL CHOLESTEROL (DIRECT) 56 mg/dL (40-60); LDL CHOLESTEROL,CALCULATED 48 mg/dL (54-169); LDL/HDL RATIO 0.9 (0.5-3.0); T4 (THYROXINE) 12.1 mcg/dL (4.8-13.9); TOTAL PROTEIN 7.6 g/dL (6.4-8.2); TRIGLYCERIDES 96 mg/dL (50-200); VLDL CHOLESTEROL 19 mg/dL (0-25)
== END 2021-05-25 23:59 | disposition home or self-care (01) ==
LOC: LAB 10:23
PROVIDERS: ATTEND Internal Medicine Cardiovascular Disease
DX: I13.0 Hypertensive heart and chronic kidney disease with heart failure and stage 1 through stage 4 chronic kidney disease, or unspecified chronic kidney disease (principal); E03.9 Hypothyroidism, unspecified; N18.30 Chronic kidney disease, stage 3 unspecified; I50.32 Chronic diastolic (congestive) heart failure; I48.91 Unspecified atrial fibrillation; E78.2 Mixed hyperlipidemia; Z79.01 Long term (current) use of anticoagulants
CPT/HCPCS: 36415; 80053; 80061; 82306; 84436; 84439; 84443; 84481; 85025